=== PATIENT | male | born 1980 | race Caucasian/White ===

== ENCOUNTER 2019-04-27 15:17 | Emergency (ER) | payer OTHER ==
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
[2019-04-27] MEDS ORDERED: Rivaroxaban TAB(*) 15 MG PO ONE (17:16)
[2019-04-27 17:38] VITALS: BP 118/87
== END 2019-04-27 17:35 | disposition home or self-care (01) ==
LOC: ED 15:17
DX: I82.621 Acute embolism and thrombosis of deep veins of right upper extremity (principal); R60.9 Edema, unspecified; Z79.01 Long term (current) use of anticoagulants
CPT/HCPCS: 99282